=== PATIENT | female | born 1935 | race Caucasian/White ===

== ENCOUNTER 2018-01-16 12:02 | Emergency (ER) | payer MEDICARE, SELFPAY ==
[2018-01-16] MEDS: Acetaminophen 500 MG TAB 1000 MG (12:30)
--- NOTE | 2018-01-16 20:20 | DI.RAD_ITS ---
SYMPTOMS/DIAGNOSIS: LUMBAR PAIN AFTER FALL LUMBAR SPINE: Gallstones are incidentally noted. There is a mild L1 compression fracture, which appears old. There is also a T9 compression fracture. Degenerative changes are seen in the facet joints from L3-4 through L5-S1. There are minimal endplate osteophytes. There is narrowing of the L5-S1 disc space. There is partial sacralization of L5. There is no spondylolysis, spondylolisthesis or significant scoliosis. 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 No acute abnormality is seen.
== END 2018-01-16 13:42 | disposition home or self-care (01) ==
LOC: ER 13:07
PROVIDERS: Emergency Provider Emergency Medicine
DX: S30.0XXA Contusion of lower back and pelvis, initial encounter (principal); W10.8XXA Fall (on) (from) other stairs and steps, initial encounter; I10 Essential (primary) hypertension
CPT/HCPCS: 99284; 72110